=== PATIENT | male | born 1980 | race African-American/Black ===

== ENCOUNTER 2020-08-25 12:48 | Emergency (ER) | payer SELFPAY ==
[2020-08-25 14:09] VITALS: BP 151/83; TEMP 98.8; BMI 40.1
[2020-08-25 16:16] VITALS: PULSE 56
== END 2020-08-25 14:00 | disposition home or self-care (01) ==
LOC: JER 12:48
DX: U07.1 COVID-19 (principal); R43.0 Anosmia
CPT/HCPCS: 99282-25; C9803; U0003